=== PATIENT | female | born 1955 | race Caucasian/White ===

== ENCOUNTER 2016-09-19 06:46 | Observation (INO) | payer BC ==
[2016-09-19] MEDS ORDERED: BABY ASPIRIN 81 MG CHEW PO ONE (07:13)
[2016-09-19] MEDS ORDERED: Nitrostat 0.4 MG (ED) SL ONE ×2 (07:13→07:21)
[2016-09-19] MEDS ORDERED: Sodium Chloride 0.9% 1000 ML 1,000 ML IV SCH (07:15)
[2016-09-19] MEDS ORDERED: Sodium Chloride 0.9% 1000 ML 1,000 ML ONE (07:21)
[2016-09-19] MEDS ORDERED: BABY ASPIRIN 81 MG CHEW ONE (07:21)
[2016-09-19 07:23] LABS: BASOPHIL % 0.2 % (0.0-0.4); Eosinophil % 1.1 % (0.00-5.0); Granulocytes % 73.9 % (36.0-66.0); Lymphocytes % 17.8 % (24.0-44.0); Mean Cell Volume 84.4 fl (78-100); Mean Corpuscular Hemoglobin 27.5 pg (26-32); Mean Platelet Volume 9.7 fl (6-9.5); Platelet Count 164 K/mm3 (150-450); Red Blood Count 4.88 M/mm3 (4.1-5.4); Red Cell Distribution Width 14.2 % (11.5-14.0); White Blood Count 4.7 K/mm3 (4.0-10.5)
[2016-09-19 07:38] LABS: INR 1.07 (0.8-3.0)
[2016-09-19 07:50] LABS: ALKALINE PHOSPHATASE 87 U/L (46-116); ANION GAP 13.8 MEQ/L (5-15); BILIRUBIN,TOTAL 0.4 mg/dL (0.2-1.0); BLOOD UREA NITROGEN 16 mg/dL (9-20); CHLORIDE 105 mEq/L (98-107); Glucose 125 MG/DL (70-110); Potassium 3.9 mEq/L (3.5-5.1); SGOT/AST 17 U/L (15-37); SGPT/ALT 23 U/L (12-78); SODIUM 143 mEq/L (136-145); Total Protein 7.3 gm/dL (6.4-8.2)
[2016-09-19] MEDS ORDERED: TORAdol 30 mg Injection IM ONE (08:04)
[2016-09-19] MEDS ORDERED: TORAdol 30 mg Injection IV ONE (08:06)
--- NOTE | 2016-09-19 08:06 | ERPHSYRPT ---
- History of Present Illness Time Seen by Provider: 09/19/16 07:08 Historian: patient Exam Limitations: clinical condition Patient Subjective Stated Complaint: PT REPORTS LEFT SIDED INTERMITTANT CHEST PAIN BEGINNING CORY 0200 THIS AM-WORSENING WITH MOVMEENT-STATES WHEN SHE LEANS TO LEFT SIDE SHARP PAIN UNDER HER BREAST-DENIES SOB-DENIES DIAPHORESIS-DENIES N/ V/D Triage Nursing Assessment: PT PINK WARM ET DRY-A & O X 3-RESP EASY ET NONLABORED AT THIS TIME-RIGHT RADIAL PULSE REGULAR-PT DENIES PAIN AT THIS TIME- LUNGS CLEAR ET EQUAL Physician History: PATIENT WITH HISTORY OF MITRAL VALVE PROLAPSE, COMPLAINS OF SHARP PAINS BELOW HER LEFT BREAST SINCE 2AM, EXACERBATED UPON INSPIRATION AND MOTION OF TORSO. DENIES DYSPNEA, COUGH, RADIATION OF PAIN TO NECK, JAW OR ARMS, DIAPHORESIS OR PALPITATIONS. RATES HER PAIN A 8/10 Timing/Duration: today Activities at Onset: none Quality: stabbing Location: other (BELOW LEFT BREAST) Chest Pain Radiation: no radiation Severity of Pain-Max: moderate Severity of Pain-Current: moderate Modifying Factors: Improves With: breathing, change in position Associated Symptoms: palpitations Prior Chest Pain/Cardiac Workup: stress test (08/2014) Nitro Today/Relief: 0.4 mg x 1, provided by ED Aspirin Treatment Today: 325 mg x 1, provided at home Allergies/Adverse Reactions: No Known Drug Allergies Allergy (Verified 09/19/16 06:54) Home Medications: Aspirin [Aspirin EC] 81 mg PO DAILY 09/14/14 [History] Metoprolol Succinate 50 mg [Toprol Xl 50 MG] 50 mg PO DAILY 09/19/16 [ History] Hx Tetanus, Diphtheria Vaccination/Date Given: No Hx Influenza Vaccination/Date Given: No Hx Pneumococcal Vaccination/Date Given: No Immunizations Up to Date: Yes - Review of Systems Constitutional: No Fever, No Chills Eyes: No Symptoms Ears, Nose, & Throat: No Symptoms Respiratory: No Symptoms, No Cough, No Dyspnea Cardiac: No Chest Pain, No Edema, No Syncope Abdominal/Gastrointestinal: No Symptoms, No Abdominal Pain, No Nausea, No Vomiting, No Diarrhea Genitourinary Symptoms: Incontinence, No Dysuria Musculoskeletal: No Symptoms, No Back Pain, No Neck Pain Skin: No Rash Neurological: No Dizziness, No Focal Weakness, No Sensory Changes Psychological: No Symptoms Endocrine: No Symptoms All Other Systems: Reviewed and Negative - Past Medical History Pertinent Past Medical History: Yes Neurological History: No Pertinent History ENT History: No Pertinent History Cardiac History: No Pertinent History Respiratory History: Pneumonia Endocrine Medical History: No Pertinent History Musculoskeletal History: No Pertinent History GI Medical History: No Pertinent History History: No Pertinent History Psycho-Social History: No Pertinent History Female Reproductive Disorders: No Pertinent History Other Medical History: mitral prolapse - Past Surgical History Past Surgical History: Yes Neuro Surgical History: No Pertinent History Cardiac: No Pertinent History Respiratory: No Pertinent History Gastrointestinal: No Pertinent History Genitourinary: No Pertinent History Musculoskeletal: No Pertinent History Female Surgical History: Tubal Ligation Other Surgical History: bladder tie up - Social History Smoking Status: Never smoker Exposure to second hand smoke: No Drug Use: none Patient Lives Alone: No - Female History Hx Now: No - Nursing Vital Signs Temperature: 97.7 F Temperature Source: Oral Pulse Rate: 53 Respiratory Rate: 18 Pain Intensity: 0 - Physical Exam General Appearance: no apparent distress, alert Eye Exam: PERRL/EOMI, eyes nml inspection Ears, Nose, Throat Exam: normal ENT inspection, moist mucous membranes Neck Exam: normal inspection, non-tender, supple, full range of motion Respiratory Exam: normal breath sounds, chest tenderness (MARKED TENDERNESS LEFT 5 ICS LEFT AXILLARY LINE BELOW LEFT BREAST), lungs clear, No respiratory distress Cardiovascular Exam: regular rate/rhythm, normal heart sounds Gastrointestinal/Abdomen Exam: soft, No tenderness, No mass Back Exam: normal inspection, No CVA tenderness, No vertebral tenderness Extremity Exam: normal inspection, normal range of motion Neurologic Exam: alert, oriented x 3, cooperative, normal mood/affect, sensation nml, No motor deficits Skin Exam: normal color, warm, dry SpO2 Interpretation: normal SpO2: 98 Oxygen Delivery: Room Air - Course EKG Interpreted by Me: RATE, Sinus Kelvin, NORMAL AXIS, Non-specific ST Changes - Radiology Exams Chest X-ray Interpretation: Discussed w/ radiologist, Negative Ordered Tests: Active Orders 24 hr Category Date Time Status Up With Assistance ROUTINE Activity 09/19/16 10:32 Active Admission/Status Order ROUTINE Care 09/19/16 10:31 Active Call Admit Doctor for Orders ROUTINE Care 09/19/16 10:31 Active Cardiovascular Rn STAT Care 09/19/16 07:13 Active Code Status Order ROUTINE Care 09/19/16 10:31 Active EKG-ER Only STAT Care 09/19/16 07:13 Active IV Care Q6H Care 09/19/16 10:31 Active IV Insertion STAT Care 09/19/16 07:13 Active Implement Chest Pain Pathway ROUTINE Care 09/19/16 10:31 Active Oxygen-ED Only NASAL CANNULA 2 lpm Care 09/19/16 07:13 Active Khalif Frankiee, Apply ROUTINE Care 09/19/16 10:31 Active Telemetry ROUTINE Care 09/19/16 10:31 Active Vital Signs Q4H Care 09/19/16 10:31 Active Weight,Daily 0600 Care 09/19/16 10:31 Active Cardiac Diet Diet 09/19/16 Lunch Active CHEST 1 VIEW (PORTABLE) Stat Exams 09/19/16 07:13 Completed CBC W DIFF Stat Lab 09/19/16 07:15 Completed CMP Stat Lab 09/19/16 07:15 Completed D-DIMER QUANTITATION Stat Lab 09/19/16 07:15 Completed LIPID PROFILE AM.LAB Lab 09/20/16 04:00 Ordered PROTIME WITH INR Stat Lab 09/19/16 07:15 Completed TROPONIN Q3H Lab 09/19/16 07:15 Completed TROPONIN Q3H Lab 09/19/16 10:15 Ordered TROPONIN Q3H Lab 09/19/16 13:15 Ordered TROPONIN Q3H Lab 09/19/16 16:15 Ordered TROPONIN Q3H Lab 09/19/16 19:15 Ordered EKG Q8HX2,QAMX3,PRN RT 09/19/16 10:31 Active Pulse Oximetry Q4H RT 09/19/16 10:31 Active Transfer Order Routine Transfer 09/19/16 10:31 Ordered Medication Summary Generic Name Dose Route Start Last Admin Trade Name Freq PRN Reason Stop Dose Admin Acetaminophen 650 mg 09/19/16 10:31 Tylenol 325 Mg PO 10/19/16 10:30 Q4H PRN PRN PAIN AND/OR FEVER Al Hydrox/Mg Hydrox/Simethicone 30 ml 09/19/16 10:31 Maalox Es 30 Ml Unit Dose PO 10/19/16 10:30 Q4H PRN PRN INDIGESTION Aspirin 325 mg 09/20/16 10:00 Ecotrin 325 Mg PO 10/20/16 09:59 DAILY ELLIS Sodium Chloride 1,000 mls @ 50 mls/hr 09/19/16 07:15 09/19/16 07:23 Sodium Chloride 0.9% 1000 Ml IV 10/19/16 07:14 50 mls/hr .Q20H ELLIS Administration Sodium Chloride 500 mls @ 20 mls/hr 09/19/16 10:45 Sodium Chloride 0.9% 500 Ml IV 10/19/16 10:44 .Q24H ELLIS Ketorolac Tromethamine 30 mg 09/19/16 10:34 Toradol 30 Mg Injection IV 09/24/16 10:33 Q6H PRN PRN PAIN Magnesium Hydroxide 30 - 60 ml 09/19/16 10:31 Milk Of Magnesia 30 Ml PO 10/19/16 10:30 QDP PRN CONSTIPATION Metoprolol Succinate 50 mg 09/20/16 10:00 Toprol-Xl 25mg Tablets PO 10/20/16 09:59 DAILY ELLIS Morphine Sulfate 2 mg 09/19/16 10:31 Morphine Sulfate 2 Mg Inj IV 09/24/16 10:30 .Q15MIN PRN PRN CHEST PAIN Nitroglycerin 0.4 mg 09/19/16 10:31 Nitrostat 0.4 Mg Tablet SL 10/19/16 10:30 .Q5MIN PRN CHEST PAIN Nitroglycerin 1 gm 09/19/16 14:00 Nitro-Bid 2% Ud Packets TOP 10/19/16 13:59 Q8HT [facility] Ondansetron HCl 4 mg 09/19/16 10:31 Zofran 4 Mg/2 Ml Vial IV 10/19/16 10:30 Q4H PRN PRN NAUSEA/VOMITING Senna/Docusate Sodium 2 udtab 09/19/16 10:31 Senokot-S Tablet PO 10/19/16 10:30 BID PRN PRN CONSTIPATION Discontinued Medications Generic Name Dose Route Start Last Admin Trade Name Freq PRN Reason Stop Dose Admin Aspirin 241 mg 09/19/16 07:13 09/19/16 07:23 Baby Aspirin 81 Mg Chew PO 09/19/16 07:14 Not Given STAT ONE Aspirin Confirm 09/19/16 07:21 Baby Aspirin 81 Mg Chew Administered 09/19/16 07:22 Dose 243 mg .ROUTE .STK-MED ONE Sodium Chloride Confirm 09/19/16 07:21 Sodium Chloride 0.9% 1000 Ml Administered 09/19/16 07:22 Dose 1,000 mls @ ud .ROUTE .STK-MED ONE Ketorolac Tromethamine 30 mg 09/19/16 08:04 09/19/16 08:09 Toradol 30 Mg Injection IM 09/19/16 08:05 Not Given STAT ONE Ketorolac Tromethamine 30 mg 09/19/16 08:06 09/19/16 08:10 Toradol 30 Mg Injection IV 09/19/16 08:07 30 mg STAT ONE Administration Ketorolac Tromethamine Confirm 09/19/16 08:07 Toradol 30 Mg Injection Administered 09/19/16 08:08 Dose 30 mg .ROUTE .STK-MED ONE Nitroglycerin 0.4 mg 09/19/16 07:13 09/19/16 07:24 Nitrostat 0.4 Mg (Ed) SL 09/19/16 07:14 0.4 mg STAT ONE Administration Nitroglycerin Confirm 09/19/16 07:21 Nitrostat 0.4 Mg (Ed) Administered 09/19/16 07:22 Dose 0.4 mg SL .STK-MED ONE Nitroglycerin 1 gm 09/19/16 09:49 09/19/16 10:28 Nitro-Bid 2% Ud Packets TOP 09/19/16 09:50 1 gm STAT ONE Administration Nitroglycerin Confirm 09/19/16 10:23 Nitro-Bid 2% Ud Packets Administered 09/19/16 10:24 Dose 1 gm .ROUTE .STK-MED ONE Lab/Rad Data: Laboratory Result Diagrams 09/19/16 07:15 09/19/16 07:15 Laboratory Results 09/19/16 09/19/16 09/19/16 Range/Units 07:15 07:15 07:15 WBC (4.0-10.5) K/mm3 RBC (4.1-5.4) M/mm3 Hgb (12.0-16.0) gm/dl Hct (35-47) % MCV (78-100) fl MCH (26-32) pg MCHC (32-36) g/dl RDW (11.5-14.0) % Plt Count (150-450) K/mm3 MPV (6-9.5) fl Gran % (36.0-66.0) % Lymphocytes % (24.0-44.0) % Monocytes % (0.0-12.0) % Eosinophils % (0.00-5.0) % Basophils % (0.0-0.4) % Basophils # (0-0.4) INR 1.07 (0.8-3.0) D-Dimer 0.346 (0.00-0.49) mg/L Sodium 143 (136-145) mEq/L Potassium 3.9 (3.5-5.1) mEq/L Chloride 105 (98-107) mEq/L Carbon Dioxide 28.0 (21-32) mEq/L Anion Gap 13.8 (5-15) MEQ/L BUN 16 (9-20) mg/dL Creatinine 0.85 (0.55-1.30) mg/dl Estimated GFR > 60 ML/MIN Glucose 125 H (70-110) MG/DL Calcium 9.5 (8.5-10.1) mg/dL Total Bilirubin 0.4 (0.2-1.0) mg/dL AST 17 (15-37) U/L ALT 23 (12-78) U/L Alkaline Phosphatase 87 (46-116) U/L Troponin I < 0.017 (0.000-0.056) ng/ml Serum Total Protein 7.3 (6.4-8.2) gm/dL Albumin 4.0 (3.4-5.0) g/dL 09/19/16 Range/Units 07:15 WBC 4.7 (4.0-10.5) K/mm3 RBC 4.88 (4.1-5.4) M/mm3 Hgb 13.4 (12.0-16.0) gm/dl Hct 41.2 (35-47) % MCV 84.4 (78-100) fl MCH 27.5 (26-32) pg MCHC 32.5 (32-36) g/dl RDW 14.2 H (11.5-14.0) % Plt Count 164 (150-450) K/mm3 MPV 9.7 H (6-9.5) fl Gran % 73.9 H (36.0-66.0) % Lymphocytes % 17.8 L (24.0-44.0) % Monocytes % 7.0 (0.0-12.0) % Eosinophils % 1.1 (0.00-5.0) % Basophils % 0.2 (0.0-0.4) % Basophils # 0.01 (0-0.4) INR (0.8-3.0) D-Dimer (0.00-0.49) mg/L Sodium (136-145) mEq/L Potassium (3.5-5.1) mEq/L Chloride (98-107) mEq/L Carbon Dioxide (21-32) mEq/L Anion Gap (5-15) MEQ/L BUN (9-20) mg/dL Creatinine (0.55-1.30) mg/dl Estimated GFR ML/MIN Glucose (70-110) MG/DL Calcium (8.5-10.1) mg/dL Total Bilirubin (0.2-1.0) mg/dL AST (15-37) U/L ALT (12-78) U/L Alkaline Phosphatase (46-116) U/L Troponin I (0.000-0.056) ng/ml Serum Total Protein (6.4-8.2) gm/dL Albumin (3.4-5.0) g/dL - Progress Progress: improved Progress Note: 09/19/16 08:12 PATIENT ADMINISTERED NITROGLYCERIN 0.4MG SL, TORADOL 30MG IV 09/19/16 09:08 PATIENT HAD COMPLETE RELIEF AFTER 1 NTG 0.4MG SL 09/19/16 09:50 Discussed with : Tan (DISCUSSED WITH DR SUAREZ AT 1020 FOR OBSERVATION) Counseled pt/family regarding: lab results, diagnosis, need for follow-up, rad results - Departure Time of Disposition: 10:40 Departure Disposition: Observation Clinical Impression: ACUTE CHEST PAIN Condition: Stable Critical Care Time: No Referrals: RIGOBERTO SUAREZ [Primary Care Provider] - Additional Instructions: TAKE NITROGLYCERIN 0.4MG EVERY 5 MINUTES FOR CHEST PAIN NEEDED UP TO TOTAL DOSE OF 3 TABLETS. RETURN TO THE EMERGENCY ROOM FOR CHEST PAIN. CONSULT YOUR FAMILY PHYSICIAN FOR EVALUATION. FOLLOWUP WITH DR FONSECA FOR SCHEDULED APPOINTMENT ON FEB 14TH, 2017 AT 4PM. Prescriptions: Nitroglycerin 0.4 mg Tablet [Nitrostat 0.4 MG Tablet] 0.4 mg SL Q5MIN PRN MR X 3 PRN #0 bottle PRN Reason: Pain
[2016-09-19] MEDS ORDERED: TORAdol 30 mg Injection ONE (08:07)
--- NOTE | 2016-09-19 09:06 | XRAY ---
Indication: Dyspnea. Comparison: September 14, 2014 Portable chest underinflated today accentuating the cardiopulmonary structures. No focal infiltrate, consolidation, or large effusion. Vascularity normal. Bony thorax intact. Impression: Nonacute underinflated chest.
[2016-09-19] MEDS ORDERED: NITRO-BID 2% UD PACKETS TOP ONE (09:49)
[2016-09-19] MEDS ORDERED: NITRO-BID 2% UD PACKETS ONE (10:23)
[2016-09-19] MEDS ORDERED: MORPHINE SULFATE 2 MG INJ IV PRN (10:31)
[2016-09-19] MEDS ORDERED: MILK OF MAGNESIA 30 ML PO PRN (10:31)
[2016-09-19] MEDS ORDERED: Nitrostat 0.4 MG Tablet SL PRN (10:31)
[2016-09-19] MEDS ORDERED: Zofran 4 MG/2 ML VIAL IV PRN (10:31)
[2016-09-19] MEDS ORDERED: Senokot-S Tablet PO PRN (10:31)
[2016-09-19] MEDS ORDERED: TYLENOL 325 MG PO PRN (10:31)
[2016-09-19] MEDS ORDERED: MAALOX ES 30 ML UNIT DOSE PO PRN (10:31)
[2016-09-19] MEDS ORDERED: TORAdol 30 mg Injection IV PRN (10:34)
[2016-09-19] MEDS ORDERED: Sodium Chloride 0.9% 500 ML 500 ML IV SCH (10:45)
[2016-09-19] MEDS ORDERED: NITRO-BID 2% UD PACKETS TOP SCH (14:00)
--- NOTE | 2016-09-19 15:47 | SSS ---
DISCHARGE DIAGNOSIS: CHEST PAIN. CHIEF COMPLAINT: Chest pain left sided worse with moving. HISTORY OF PRESENT ILLNESS: The patient is a 61 year-old white female who presented to the emergency room. She reports that she woke up in the middle of the night to go to the bathroom and noticed she was having some chest discomfort on the left side which was sharp in nature and worse with movement particularly twisting to the left. The patient denied any heaviness of the chest, shortness of breath. No nausea, vomiting or diaphoresis. The patient reports that she previously had a stress test done two years ago which was somewhat concerning but they never followed it up beyond that and she has never had any problems other than she does have a history of mitral valve prolapse. PAST MEDICAL/SURGICAL HISTORY: Otherwise fairly unremarkable. MEDICATIONS: Aspirin 81 mg a day, metoprolol 50 mg extended release daily. ALLERGIES: NKDA. FAMILY HISTORY: Noncontributory. SOCIAL HISTORY: The patient is a nonsmoker, nondrinker. PHYSICAL EXAMINATION: Her vital signs on admission showed temperature 97.7F oral, pulse 53, respiratory rate 18, blood pressure not recorded on the chart record. HEENT: Normocephalic, atraumatic. Pupils equal round reactive to light. Extraocular movements intact. Oropharynx is pink and moist. NECK: Supple without lymphadenopathy, thyromegaly or JVD. CHEST: Clear to auscultation. It is nontender to palpation other than minimally in the left upper quadrant. ABDOMEN: Soft, nontender, nondistended without hepatosplenomegaly or masses. EXTREMITIES: Without clubbing, cyanosis or edema. NEUROLOGIC: The patient is alert and oriented x3. No focal deficits noted. LAB DATA AND TESTS: The laboratory studies revealed troponin done three separate times at less than 0.017 after the patient had been admitted for observation. The patient's initial metabolic panel showed glucose nonfasting at 125, BUN 16, creatinine 0.85. Electrolytes are normal. Liver enzymes were normal. She had D-dimer of 0.346 which was within normal range. Her CBC was normal with a white blood cell count of 4,700, hemoglobin 13.4, PLT count 164,000. Chest x-ray was nonacute underinflated chest. EKG showed normal sinus rhythm with nonspecific ST-T wave changes noted. The patient did previously have nuclear medicine heart scan performed on 09/25/2014 which showed 10% reversible ischemia lateral wall. Left ventricular ejection fraction 64% at that time. HOSPITAL COURSE: During the patient's stay she has been essentially pain free other than when she moves over to her left side which causes her sharp discomfort. Her troponins have remained negative. She was felt to be ready for discharge home with instructions to follow up with her administrative officer. She was given a prescription for sublingual nitroglycerin to take for chest pain heaviness. She is instructed to take aspirin for the chest wall pain otherwise and instructed to follow up with her administrative officer or return to the hospital if she had further problems in the interim.
[2016-09-19 15:52] VITALS: BP 106/59; PULSE 47; O2SAT 94
[2016-09-20] MEDS ORDERED: Ecotrin 325 MG PO SCH (10:00)
[2016-09-20] MEDS ORDERED: Toprol-Xl 25MG Tablets PO SCH (10:00)
== END 2016-09-19 16:40 | disposition home or self-care (01) ==
LOC: ED 06:46 → MED SURG 10:55
PROVIDERS: ADMIT Family Medicine; ATTEND Family Medicine
DX: R07.89 Other chest pain (principal); I34.1 Nonrheumatic mitral (valve) prolapse
CPT/HCPCS: 36000; 36415; 71010; 80053; 84484; 85025; 85379; 85610; 93005; 93041; 93268; 96360; 96361; 96374; 99284; G0378; J1885

== ENCOUNTER 2021-03-09 14:58 | Observation (INO) | payer MEDICARE ==
[2021-03-09] MEDS ORDERED: BABY ASPIRIN 81 MG CHEW PO ONE (15:27)
[2021-03-09] MEDS ORDERED: MORPHINE SULFATE 4 MG INJ IV ONE (15:27)
[2021-03-09] MEDS ORDERED: Zofran 4 MG/2 ML VIAL IV ONE (15:27)
[2021-03-09 15:34] LABS: Absolute Neutrophil Ct (ANC) 3.78 (1.4-6.9); BASOPHIL % 0.2 % (0.0-0.4); Basophil (Absolute #) 0.01 (0-0.4); Eosinophil (Absolute #) 0.05 (0-0.5); Hematocrit 41.3 % (35-47); Hemoglobin 13.3 gm/dl (12.0-16.0); Lymphocyte (Absolute #) 0.75 (1.0-4.6); Mean Cell Volume 84.8 fl (78-100); Mean Corpuscular Hemoglobin 27.3 pg (26-32); Mean Corpuscular Hgb Concent. 32.2 g/dl (32-36); Mean Platelet Volume 9.7 fl (7.5-11.0); Monocyte (Absolute #) 0.41 (0.0-1.3); Monocytes % 8.2 % (0.0-12.0); Neutrophil % 75.6 % (36.0-66.0); Platelet Count 200 K/mm3 (150-450); Red Blood Count 4.87 M/mm3 (4.1-5.4); Red Cell Distribution Width 14.5 % (11.5-14.0)
--- NOTE | 2021-03-09 15:49 | ERPHSYRPT ---
- History of Present Illness Time Seen by Provider: 03/09/21 15:02 Historian: patient Exam Limitations: no limitations Patient Subjective Stated Complaint: chest pain Triage Nursing Assessment: pt to ED c/o CP onset Sunday at rest. pt states pain originates in L upper chest and radiates to L arm and back. hx sciatic nerve pain and pt states she thought this felt similar but pain has not yet gone away. rates 6/10 at worst, but around 3/10 now. heart sounds clear. lungs clear and equal bilaterally. daily asa taken Physician History: 65 years old female with history of hypertension presented in the ER with chief complaint of left-sided chest pain off and on moderate intensity, dull aching, radiating to left arm/back without any significant aggravating or relieving factors. Patient is having constant pain since morning. No palpitations or shortness of breath. Denies any fever chills or cough. Denies any history of stenting/CAD in the past. Timing/Duration: day(s) (4), intermittent, gradual onset, worse Activities at Onset: rest Quality: dullness, sharpness Chest Pain Radiation: arm, back Severity of Pain-Max: moderate Severity of Pain-Current: moderate Modifying Factors: Improves With: nothing Associated Symptoms: denies symptoms Prior Chest Pain/Cardiac Workup: no prior chest pain, no prior cardiac workup Nitro Today/Relief: no nitro taken today Aspirin Treatment Today: no aspirin today Allergies/Adverse Reactions: No Known Drug Allergies Allergy (Verified 03/09/21 15:10) Home Medications: Aspirin [Aspirin EC] 81 mg PO DAILY 09/14/14 [History] Metoprolol Succinate 50 mg [Toprol Xl 50 MG] 50 mg PO DAILY 09/19/16 [History] Hx Tetanus, Diphtheria Vaccination/Date Given: No Hx Influenza Vaccination/Date Given: No Hx Pneumococcal Vaccination/Date Given: No Immunizations Up to Date: No Travel Risk - International Travel Have you traveled outside of the country in past 3 weeks: No - Coronavirus Screening Are you exhibiting any of the following symptoms?: No Close contact with a COVID-19 positive Pt in past 14-21 Days: No - Vaccine Status Have you recieved a Covid-19 vaccination: No Skates Operator: Moderna - Vaccination Dates Date of 2cond Vaccination (if applicable): december - Review of Systems Constitutional: No Symptoms Eyes: No Symptoms Ears, Nose, & Throat: No Symptoms Respiratory: No Symptoms Cardiac: Chest Pain Abdominal/Gastrointestinal: No Symptoms Genitourinary Symptoms: No Symptoms Musculoskeletal: No Symptoms Skin: No Symptoms Neurological: No Symptoms Psychological: No Symptoms Endocrine: No Symptoms Immunological/Allergic: No Symptoms - Past Medical History Pertinent Past Medical History: Yes Neurological History: No Pertinent History ENT History: No Pertinent History Cardiac History: No Pertinent History Respiratory History: Pneumonia Endocrine Medical History: No Pertinent History Musculoskeletal History: No Pertinent History GI Medical History: No Pertinent History History: No Pertinent History Psycho-Social History: No Pertinent History Female Reproductive Disorders: No Pertinent History Other Medical History: mitral prolapse - Past Surgical History Past Surgical History: Yes Neuro Surgical History: No Pertinent History Cardiac: No Pertinent History Respiratory: No Pertinent History Gastrointestinal: No Pertinent History Genitourinary: No Pertinent History Musculoskeletal: No Pertinent History Female Surgical History: Tubal Ligation Other Surgical History: bladder tie up - Social History Smoking Status: Never smoker Exposure to second hand smoke: Yes Drug Use: none Patient Lives Alone: No - Nursing Vital Signs Nursing Vital Signs: Initial Vital Signs Temperature 97.8 F 03/09/21 15:16 Pulse Rate 60 03/09/21 15:16 Respiratory Rate 18 03/09/21 15:16 Blood Pressure 140/73 03/09/21 15:16 O2 Sat by Pulse Oximetry 98 03/09/21 15:16 Pain Scale Pain Intensity 3 - Physical Exam General Appearance: no apparent distress, alert Eye Exam: PERRL/EOMI Ears, Nose, Throat Exam: normal ENT inspection Neck Exam: normal inspection, non-tender, full range of motion Respiratory Exam: normal breath sounds, lungs clear Cardiovascular Exam: regular rate/rhythm, normal heart sounds Gastrointestinal/Abdomen Exam: soft, normal bowel sounds Back Exam: normal inspection, normal range of motion Extremity Exam: normal inspection, normal range of motion Neurologic Exam: alert, oriented x 3, cooperative Skin Exam: normal color SpO2 Interpretation: normal SpO2: 98 O2 Delivery: Room Air - Course EKG Interpreted by Me: RATE (58), Sinus Kelvin, NORMAL AXIS, NORMAL INTERVALS (T wave inversions inferior leads. Mild ST depression in anterior leads.), Non- specific ST Changes Ordered Tests: Active Orders 24 hr Category Date Time Status Field Superintendent STAT Care 03/09/21 15:28 Active EKG-ER Only STAT Care 03/09/21 15:27 Active IV Insertion STAT Care 03/09/21 15:27 Active CHEST 1 VIEW (PORTABLE) Stat Exams 03/09/21 15:28 Completed CBC W DIFF Stat Lab 03/09/21 15:10 Completed CMP Stat Lab 03/09/21 15:10 Completed D-DIMER QUANTITATIVE Stat Lab 03/09/21 17:31 Ordered NT PRO BNP Stat Lab 03/09/21 15:10 Completed TROPONIN Q3H Lab 03/09/21 15:10 Completed TROPONIN Q3H Lab 03/09/21 18:30 Ordered TROPONIN Q3H Lab 03/09/21 21:30 Ordered TROPONIN Q3H Lab 03/10/21 00:30 Ordered TROPONIN Q3H Lab 03/10/21 03:30 Ordered Medication Summary Discontinued Medications Generic Name Dose Route Start Last Admin Trade Name Freq PRN Reason Stop Dose Admin Aspirin 324 mg 03/09/21 15:27 03/09/21 16:27 Baby Aspirin 81 Mg Chew PO 03/09/21 15:28 324 mg STAT ONE Administration Aspirin Confirm 03/09/21 16:24 Baby Aspirin 81 Mg Chew Administered 03/09/21 16:25 Dose 243 mg .ROUTE .STK-MED ONE Morphine Sulfate 4 mg 03/09/21 15:27 03/09/21 16:31 Morphine Sulfate 4 Mg Inj IV 03/09/21 15:28 4 mg STAT ONE Administration Morphine Sulfate Confirm 03/09/21 16:24 Morphine Sulfate 4 Mg Inj Administered 03/09/21 16:25 Dose 4 mg .ROUTE .STK-MED ONE Ondansetron HCl 4 mg 03/09/21 15:27 03/09/21 16:29 Zofran 4 Mg/2 Ml Vial IV 03/09/21 15:28 4 mg STAT ONE Administration Ondansetron HCl Confirm 03/09/21 16:24 Zofran 4 Mg/2 Ml Vial Administered 03/09/21 16:25 Dose 4 mg .ROUTE .STK-MED ONE Lab/Rad Data: Laboratory Result Diagrams 03/09/21 15:10 03/09/21 15:10 Laboratory Results 03/09/21 03/09/21 03/09/21 Range/Units 15:10 15:10 15:10 WBC 5.0 (4.0-10.5) K/mm3 RBC 4.87 (4.1-5.4) M/mm3 Hgb 13.3 (12.0-16.0) gm/dl Hct 41.3 (35-47) % MCV 84.8 (78-100) fl MCH 27.3 (26-32) pg MCHC 32.2 (32-36) g/dl RDW 14.5 H (11.5-14.0) % Plt Count 200 (150-450) K/mm3 MPV 9.7 (7.5-11.0) fl Gran % 75.6 H (36.0-66.0) % Eos # (Auto) 0.05 (0-0.5) Absolute Lymphs (auto) 0.75 L (1.0-4.6) Absolute Monos (auto) 0.41 (0.0-1.3) Lymphocytes % 15.0 L (24.0-44.0) % Monocytes % 8.2 (0.0-12.0) % Eosinophils % 1.0 (0.00-5.0) % Basophils % 0.2 (0.0-0.4) % Absolute Granulocytes 3.78 (1.4-6.9) Basophils # 0.01 (0-0.4) Sodium 141 (137-145) mmol/L Potassium 4.2 (3.5-5.1) mmol/L Chloride 105 (98-107) mmol/L Carbon Dioxide 29 (22-30) mmol/L Anion Gap 11.4 (5-15) MEQ/L BUN 16 (7-17) mg/dL Creatinine 0.77 (0.52-1.04) mg/dL Estimated GFR > 60.0 ML/MIN Glucose 127 H (74-106) mg/dL Calcium 9.7 (8.4-10.2) mg/dL Total Bilirubin 0.50 (0.2-1.3) mg/dL AST 22 (14-36) U/L ALT 17 (0-35) U/L Alkaline Phosphatase 82 (38-126) U/L Troponin I < 0.012 (0.000-0.034) ng/mL NT-Pro-B Natriuret Pep 162 (0-900) pg/mL Serum Total Protein 6.6 (6.3-8.2) g/dL Albumin 4.1 (3.5-5.0) g/dL - Progress Progress: improved Air Movement: good Progress Note: 03/09/21 17:34 She is given aspirin and morphine, on reevaluation chest pain is much improved but not completely resolved. EKG showed some T wave inversion in inferior leads and nonspecific T wave changes in the lateral leads and some mild ST depression in anterior leads. Initial troponins are negative. Chest x-ray negative for any acute cardiopulmonary findings. Discussed with Dr. Rowan and patient is being admitted for observation to rule out [place]. Blood Culture(s) Obtained: No Antibiotics given: No Discussed with : Aureliano Will see patient in: hospital (observation) Counseled pt/family regarding: lab results, diagnosis, need for follow-up, rad results - Departure Departure Disposition: Observation Clinical Impression: Chest pain, rule out acute myocardial infarction Condition: Stable Critical Care Time: No Referrals: RIGOBERTO SUAREZ [ACTIVE STAFF] -
--- NOTE | 2021-03-09 15:54 | XRAY ---
Exam: AP upright portable chest film from 03/09/2021. Comparison: AP portable chest film from 09/19/2016. Indication: Chest pain. Findings: The heart size appears within normal limits. Atherosclerotic vascular calcification is seen within the aortic knob, and there is slight tortuosity of the proximal descending thoracic aorta. The remainder of the leonor and mediastinal structures appears unremarkable. There is average inflation of the lungs. There is slight elevation of the right hemidiaphragm with respect to the left hemidiaphragm representing no change. No air space infiltrates, vascular congestion, pneumothorax, or pleural fluid is seen. No acute osseous process is seen. There is minimal convexity of the mid thoracic spine toward the right. Impression: 1. No acute cardiopulmonary process seen.
[2021-03-09] MEDS ORDERED: MORPHINE SULFATE 4 MG INJ ONE (16:24)
[2021-03-09] MEDS ORDERED: Zofran 4 MG/2 ML VIAL ONE (16:24)
[2021-03-09] MEDS ORDERED: BABY ASPIRIN 81 MG CHEW ONE (16:24)
[2021-03-09 16:55] LABS: ALBUMIN 4.1 g/dL (3.5-5.0); ALKALINE PHOSPHATASE 82 U/L (38-126); ANION GAP 11.4 MEQ/L (5-15); BLOOD UREA NITROGEN 16 mg/dL (7-17); CHLORIDE 105 mmol/L (98-107); Calcium 9.7 mg/dL (8.4-10.2); Carbon Dioxide 29 mmol/L (22-30); Creatinine 1 0.77 mg/dL (0.52-1.04); EST GLOMERULAR FILTRATION RATE > 60.0 ML/MIN; Glucose 127 mg/dL (74-106); NT PRO BNP 162 pg/mL (0-900); Potassium 4.2 mmol/L (3.5-5.1); SGOT/AST 22 U/L (14-36); SGPT/ALT 17 U/L (0-35); SODIUM 141 mmol/L (137-145); Total Protein 6.6 g/dL (6.3-8.2)
[2021-03-09] MEDS ORDERED: MORPHINE SULFATE 2 MG INJ IV PRN (20:44)
[2021-03-09] MEDS ORDERED: TYLENOL 325 MG PO PRN (20:44)
[2021-03-09] MEDS ORDERED: DUONEB 0.5-3 MG/3 ml Neb IH PRN (20:44)
[2021-03-09] MEDS ORDERED: Zofran 4 MG/2 ML VIAL IV PRN (20:44)
[2021-03-10 03:33] LABS: Absolute Neutrophil Ct (ANC) 2.77 (1.4-6.9); BASOPHIL % 0.3 % (0.0-0.4); Basophil (Absolute #) 0.01 (0-0.4); Eosinophil % 1.6 % (0.00-5.0); Eosinophil (Absolute #) 0.06 (0-0.5); Hematocrit 38.7 % (35-47); Hemoglobin 12.4 gm/dl (12.0-16.0); Lymphocyte (Absolute #) 0.69 (1.0-4.6); Lymphocytes % 17.9 % (24.0-44.0); Mean Cell Volume 84.9 fl (78-100); Mean Corpuscular Hemoglobin 27.2 pg (26-32); Mean Platelet Volume 9.3 fl (7.5-11.0); Monocyte (Absolute #) 0.33 (0.0-1.3); Monocytes % 8.5 % (0.0-12.0); Neutrophil % 71.7 % (36.0-66.0); Platelet Count 149 K/mm3 (150-450); Red Blood Count 4.56 M/mm3 (4.1-5.4); Red Cell Distribution Width 14.5 % (11.5-14.0); White Blood Count 3.9 K/mm3 (4.0-10.5)
[2021-03-10 04:02] LABS: ALBUMIN 3.7 g/dL (3.5-5.0); ALKALINE PHOSPHATASE 65 U/L (38-126); ANION GAP 10.4 MEQ/L (5-15); BLOOD UREA NITROGEN 14 mg/dL (7-17); CHLORIDE 105 mmol/L (98-107); Calcium 9.1 mg/dL (8.4-10.2); Carbon Dioxide 29 mmol/L (22-30); Creatinine 1 0.72 mg/dL (0.52-1.04); EST GLOMERULAR FILTRATION RATE > 60.0 ML/MIN; Glucose 116 mg/dL (74-106); SGOT/AST 22 U/L (14-36); SGPT/ALT 16 U/L (0-35); SODIUM 140 mmol/L (137-145)
--- NOTE | 2021-03-10 07:30 | PCM.SSS ---
History of Present Illness - Chief Complaint Chief Complaint: Chest pain rule out acute [place] History of Present Illness: is a 65 year old female patient of Dr Jeffries, she came to ER yesterday with a 4-5 day history of chest pain, she is not able to describe the pain well but states it is not sharp, pain is intermittent and fleeting and radiates to her back. no nausea, vomiting, dyspnea or diaphoresis associated with the pain. she has seen Dr Fonseca in the past and had stress testing but no interventions. she has nitro at home but hasn't tried it for any of the episodes of pain for unknown reason. she has no pain this morning. - Review of Systems Constitutional: No Fever, No Chills Respiratory: No Cough, No Short Of Breath Cardiac: Chest Pain Abdominal/Gastrointestinal: No Abdominal Pain, No Nausea, No Vomiting, No Diarrhea Genitourinary Symptoms: No Dysuria Skin: No Rash Neurological: No Dizziness, No Focal Weakness, No Sensory Changes All Other Systems: Reviewed and Negative Medications & Allergies Home Medications: Home Medication List Aspirin [Aspirin EC] 81 mg PO DAILY 09/14/14 [History Confirmed 03/09/21] Metoprolol Succinate 50 mg [Toprol Xl 50 MG] 50 mg PO DAILY 09/19/16 [History Confirmed 03/09/21] Nitroglycerin 0.4 mg Tablet [Nitrostat 0.4 MG Tablet] 0.4 mg SL Q5MIN PRN MR X 3 PRN #25 bottle 09/19/16 [Rx Confirmed 03/09/21] Pravastatin Sodium 20 mg PO DAILY 03/09/21 [History Confirmed 03/09/21] Allergies/Adverse Reactions: Allergies Allergy/AdvReac Type Severity Reaction Status Date / Time No Known Drug Allergies Allergy Verified 03/09/21 15:10 - Past Medical History Past Medical History: Yes Neurological History: No Pertinent History ENT History: No Pertinent History Cardiac History: No Pertinent History, High Cholesterol Respiratory History: Pneumonia Endocrine Medical History: No Pertinent History Musculoskelatal History: No Pertinent History GI Medical History: No Pertinent History History: No Pertinent History Pyscho-Social History: No Pertinent History Reproductive Disorders: No Pertinent History Comment: mitral prolapse - Female History Are you now?: No - Past Surgical History Past Surgical History: Yes Neuro Surgical History: No Pertinent History Cardiac History: No Pertinent History Respiratory Surgery: No Pertinent History GI Surgical History: No Pertinent History Genitourinary Surgical Hx: No Pertinent History Musculskeletal Surgical Hx: No Pertinent History Female Surgical History: Tubal Ligation Other Surgical History: bladder tie up - Social History Smoking Status: Never smoker Exposure to second hand smoke: No Alcohol: None Drug Use: none - Physical Exam Vital Signs: Vital Signs - 24 hr Temp Pulse Pulse Resp BP Pulse Ox 03/10/21 04:00 97.7 F 45 L 20 139/66 96 03/10/21 00:00 97.9 F 50 L 16 140/62 98 03/09/21 21:22 97.4 F 56 L 18 160/63 97 03/09/21 20:00 58 L 18 160/63 97 03/09/21 19:00 46 L 18 166/70 98 03/09/21 18:00 40 L 18 150/69 94 L 03/09/21 17:44 98.2 F 44 L 18 155/73 98 03/09/21 17:35 98 03/09/21 16:35 92 H 24 98 03/09/21 15:16 97.8 F 54 L 60 18 140/73 98 General Appearance: no apparent distress, alert Respiratory Exam: normal breath sounds, lungs clear, No respiratory distress Cardiovascular Exam: regular rate/rhythm, normal heart sounds, normal peripheral pulses Gastrointestinal/Abdomen Exam: soft, normal bowel sounds, No tenderness, No mass Extremity Exam: normal inspection, normal range of motion, pelvis stable Skin Exam: normal color, warm, dry, No rash Results - Labs Lab/Micro Results: Lab Results-Last 24 Hours 03/09/21 03/09/21 03/09/21 Range/Units 15:10 15:10 15:10 WBC 5.0 (4.0-10.5) K/mm3 RBC 4.87 (4.1-5.4) M/mm3 Hgb 13.3 (12.0-16.0) gm/dl Hct 41.3 (35-47) % MCV 84.8 (78-100) fl MCH 27.3 (26-32) pg MCHC 32.2 (32-36) g/dl RDW 14.5 H (11.5-14.0) % Plt Count 200 (150-450) K/mm3 MPV 9.7 (7.5-11.0) fl Gran % 75.6 H (36.0-66.0) % Eos # (Auto) 0.05 (0-0.5) Absolute Lymphs (auto) 0.75 L (1.0-4.6) Absolute Monos (auto) 0.41 (0.0-1.3) Lymphocytes % 15.0 L (24.0-44.0) % Monocytes % 8.2 (0.0-12.0) % Eosinophils % 1.0 (0.00-5.0) % Basophils % 0.2 (0.0-0.4) % Absolute Granulocytes 3.78 (1.4-6.9) Basophils # 0.01 (0-0.4) D-Dimer (215-500) ng/mL Sodium 141 (137-145) mmol/L Potassium 4.2 (3.5-5.1) mmol/L Chloride 105 (98-107) mmol/L Carbon Dioxide 29 (22-30) mmol/L Anion Gap 11.4 (5-15) MEQ/L BUN 16 (7-17) mg/dL Creatinine 0.77 (0.52-1.04) mg/dL Estimated GFR > 60.0 ML/MIN Glucose 127 H (74-106) mg/dL Calcium 9.7 (8.4-10.2) mg/dL Total Bilirubin 0.50 (0.2-1.3) mg/dL AST 22 (14-36) U/L ALT 17 (0-35) U/L Alkaline Phosphatase 82 (38-126) U/L Troponin I < 0.012 (0.000-0.034) ng/mL NT-Pro-B Natriuret Pep 162 (0-900) pg/mL Serum Total Protein 6.6 (6.3-8.2) g/dL Albumin 4.1 (3.5-5.0) g/dL SARS-CoV-2 (PCR) (NEGATIVE) 03/09/21 03/09/21 03/09/21 Range/Units 17:49 17:57 18:00 WBC (4.0-10.5) K/mm3 RBC (4.1-5.4) M/mm3 Hgb (12.0-16.0) gm/dl Hct (35-47) % MCV (78-100) fl MCH (26-32) pg MCHC (32-36) g/dl RDW (11.5-14.0) % Plt Count (150-450) K/mm3 MPV (7.5-11.0) fl Gran % (36.0-66.0) % Eos # (Auto) (0-0.5) Absolute Lymphs (auto) (1.0-4.6) Absolute Monos (auto) (0.0-1.3) Lymphocytes % (24.0-44.0) % Monocytes % (0.0-12.0) % Eosinophils % (0.00-5.0) % Basophils % (0.0-0.4) % Absolute Granulocytes (1.4-6.9) Basophils # (0-0.4) D-Dimer 1632 H* (215-500) ng/mL Sodium (137-145) mmol/L Potassium (3.5-5.1) mmol/L Chloride (98-107) mmol/L Carbon Dioxide (22-30) mmol/L Anion Gap (5-15) MEQ/L BUN (7-17) mg/dL Creatinine (0.52-1.04) mg/dL Estimated GFR ML/MIN Glucose (74-106) mg/dL Calcium (8.4-10.2) mg/dL Total Bilirubin (0.2-1.3) mg/dL AST (14-36) U/L ALT (0-35) U/L Alkaline Phosphatase (38-126) U/L Troponin I < 0.012 (0.000-0.034) ng/mL NT-Pro-B Natriuret Pep (0-900) pg/mL Serum Total Protein (6.3-8.2) g/dL Albumin (3.5-5.0) g/dL SARS-CoV-2 (PCR) NEGATIVE (NEGATIVE) 03/09/21 03/10/21 03/10/21 Range/Units 21:06 00:21 03:35 WBC (4.0-10.5) K/mm3 RBC (4.1-5.4) M/mm3 Hgb (12.0-16.0) gm/dl Hct (35-47) % MCV (78-100) fl MCH (26-32) pg MCHC (32-36) g/dl RDW (11.5-14.0) % Plt Count (150-450) K/mm3 MPV (7.5-11.0) fl Gran % (36.0-66.0) % Eos # (Auto) (0-0.5) Absolute Lymphs (auto) (1.0-4.6) Absolute Monos (auto) (0.0-1.3) Lymphocytes % (24.0-44.0) % Monocytes % (0.0-12.0) % Eosinophils % (0.00-5.0) % Basophils % (0.0-0.4) % Absolute Granulocytes (1.4-6.9) Basophils # (0-0.4) D-Dimer (215-500) ng/mL Sodium (137-145) mmol/L Potassium (3.5-5.1) mmol/L Chloride (98-107) mmol/L Carbon Dioxide (22-30) mmol/L Anion Gap (5-15) MEQ/L BUN (7-17) mg/dL Creatinine (0.52-1.04) mg/dL Estimated GFR ML/MIN Glucose (74-106) mg/dL Calcium (8.4-10.2) mg/dL Total Bilirubin (0.2-1.3) mg/dL AST (14-36) U/L ALT (0-35) U/L Alkaline Phosphatase (38-126) U/L Troponin I < 0.012 < 0.012 < 0.012 (0.000-0.034) ng/mL NT-Pro-B Natriuret Pep (0-900) pg/mL Serum Total Protein (6.3-8.2) g/dL Albumin (3.5-5.0) g/dL SARS-CoV-2 (PCR) (NEGATIVE) 03/10/21 03/10/21 Range/Units 03:35 03:35 WBC 3.9 L (4.0-10.5) K/mm3 RBC 4.56 (4.1-5.4) M/mm3 Hgb 12.4 (12.0-16.0) gm/dl Hct 38.7 (35-47) % MCV 84.9 (78-100) fl MCH 27.2 (26-32) pg MCHC 32.0 (32-36) g/dl RDW 14.5 H (11.5-14.0) % Plt Count 149 L (150-450) K/mm3 MPV 9.3 (7.5-11.0) fl Gran % 71.7 H (36.0-66.0) % Eos # (Auto) 0.06 (0-0.5) Absolute Lymphs (auto) 0.69 L (1.0-4.6) Absolute Monos (auto) 0.33 (0.0-1.3) Lymphocytes % 17.9 L (24.0-44.0) % Monocytes % 8.5 (0.0-12.0) % Eosinophils % 1.6 (0.00-5.0) % Basophils % 0.3 (0.0-0.4) % Absolute Granulocytes 2.77 (1.4-6.9) Basophils # 0.01 (0-0.4) D-Dimer (215-500) ng/mL Sodium 140 (137-145) mmol/L Potassium 4.0 (3.5-5.1) mmol/L Chloride 105 (98-107) mmol/L Carbon Dioxide 29 (22-30) mmol/L Anion Gap 10.4 (5-15) MEQ/L BUN 14 (7-17) mg/dL Creatinine 0.72 (0.52-1.04) mg/dL Estimated GFR > 60.0 ML/MIN Glucose 116 H (74-106) mg/dL Calcium 9.1 (8.4-10.2) mg/dL Total Bilirubin 0.50 (0.2-1.3) mg/dL AST 22 (14-36) U/L ALT 16 (0-35) U/L Alkaline Phosphatase 65 (38-126) U/L Troponin I (0.000-0.034) ng/mL NT-Pro-B Natriuret Pep (0-900) pg/mL Serum Total Protein 6.0 L (6.3-8.2) g/dL Albumin 3.7 (3.5-5.0) g/dL SARS-CoV-2 (PCR) (NEGATIVE) - Radiology Impressions Radiology Exams & Impressions: Radiology Procedures Category Date Time Status CHEST 1 VIEW (PORTABLE) Stat Exams 03/09/21 15:28 Completed CHEST WITH CONTRAST [CT] Stat Exams 03/09/21 18:32 Taken Assessment/Plan (1) Chest pain, rule out acute myocardial infarction Current Visit: Yes Status: Acute Assessment & Plan: pain seems atypical, advised to use nitro prn for pain at home. will have her f/u with Dr Fonseca in the next week or so. in the meantime will cont asa, statin and beta cayden therapy Code(s): R07.9 - CHEST PAIN, UNSPECIFIED Hospital Summary - Vitals & Intake/Output Vital Signs: Vital Signs Temperature 97.7 F 03/10/21 04:00 Pulse Rate 45 L 03/10/21 04:00 Respiratory Rate 20 03/10/21 04:00 Blood Pressure 139/66 03/10/21 04:00 O2 Sat by Pulse Oximetry 96 03/10/21 04:00 Intake & Output: Intake & Output 03/07/21 03/08/21 03/09/21 03/10/21 11:59 11:59 11:59 11:59 Intake Total 680 Balance 680 Weight 86.183 kg - Lab Result Diagrams: 03/10/21 03:35 03/10/21 03:35 Lab Results-Last 24 Hrs: Lab Results-Last 24 Hours 03/09/21 03/09/21 03/09/21 Range/Units 15:10 15:10 15:10 WBC 5.0 (4.0-10.5) K/mm3 RBC 4.87 (4.1-5.4) M/mm3 Hgb 13.3 (12.0-16.0) gm/dl Hct 41.3 (35-47) % MCV 84.8 (78-100) fl MCH 27.3 (26-32) pg MCHC 32.2 (32-36) g/dl RDW 14.5 H (11.5-14.0) % Plt Count 200 (150-450) K/mm3 MPV 9.7 (7.5-11.0) fl Gran % 75.6 H (36.0-66.0) % Eos # (Auto) 0.05 (0-0.5) Absolute Lymphs (auto) 0.75 L (1.0-4.6) Absolute Monos (auto) 0.41 (0.0-1.3) Lymphocytes % 15.0 L (24.0-44.0) % Monocytes % 8.2 (0.0-12.0) % Eosinophils % 1.0 (0.00-5.0) % Basophils % 0.2 (0.0-0.4) % Absolute Granulocytes 3.78 (1.4-6.9) Basophils # 0.01 (0-0.4) D-Dimer (215-500) ng/mL Sodium 141 (137-145) mmol/L Potassium 4.2 (3.5-5.1) mmol/L Chloride 105 (98-107) mmol/L Carbon Dioxide 29 (22-30) mmol/L Anion Gap 11.4 (5-15) MEQ/L BUN 16 (7-17) mg/dL Creatinine 0.77 (0.52-1.04) mg/dL Estimated GFR > 60.0 ML/MIN Glucose 127 H (74-106) mg/dL Calcium 9.7 (8.4-10.2) mg/dL Total Bilirubin 0.50 (0.2-1.3) mg/dL AST 22 (14-36) U/L ALT 17 (0-35) U/L Alkaline Phosphatase 82 (38-126) U/L Troponin I < 0.012 (0.000-0.034) ng/mL NT-Pro-B Natriuret Pep 162 (0-900) pg/mL Serum Total Protein 6.6 (6.3-8.2) g/dL Albumin 4.1 (3.5-5.0) g/dL SARS-CoV-2 (PCR) (NEGATIVE) 03/09/21 03/09/21 03/09/21 Range/Units 17:49 17:57 18:00 WBC (4.0-10.5) K/mm3 RBC (4.1-5.4) M/mm3 Hgb (12.0-16.0) gm/dl Hct (35-47) % MCV (78-100) fl MCH (26-32) pg MCHC (32-36) g/dl RDW (11.5-14.0) % Plt Count (150-450) K/mm3 MPV (7.5-11.0) fl Gran % (36.0-66.0) % Eos # (Auto) (0-0.5) Absolute Lymphs (auto) (1.0-4.6) Absolute Monos (auto) (0.0-1.3) Lymphocytes % (24.0-44.0) % Monocytes % (0.0-12.0) % Eosinophils % (0.00-5.0) % Basophils % (0.0-0.4) % Absolute Granulocytes (1.4-6.9) Basophils # (0-0.4) D-Dimer 1632 H* (215-500) ng/mL Sodium (137-145) mmol/L Potassium (3.5-5.1) mmol/L Chloride (98-107) mmol/L Carbon Dioxide (22-30) mmol/L Anion Gap (5-15) MEQ/L BUN (7-17) mg/dL Creatinine (0.52-1.04) mg/dL Estimated GFR ML/MIN Glucose (74-106) mg/dL Calcium (8.4-10.2) mg/dL Total Bilirubin (0.2-1.3) mg/dL AST (14-36) U/L ALT (0-35) U/L Alkaline Phosphatase (38-126) U/L Troponin I < 0.012 (0.000-0.034) ng/mL NT-Pro-B Natriuret Pep (0-900) pg/mL Serum Total Protein (6.3-8.2) g/dL Albumin (3.5-5.0) g/dL SARS-CoV-2 (PCR) NEGATIVE (NEGATIVE) 03/09/21 03/10/21 03/10/21 Range/Units 21:06 00:21 03:35 WBC (4.0-10.5) K/mm3 RBC (4.1-5.4) M/mm3 Hgb (12.0-16.0) gm/dl Hct (35-47) % MCV (78-100) fl MCH (26-32) pg MCHC (32-36) g/dl RDW (11.5-14.0) % Plt Count (150-450) K/mm3 MPV (7.5-11.0) fl Gran % (36.0-66.0) % Eos # (Auto) (0-0.5) Absolute Lymphs (auto) (1.0-4.6) Absolute Monos (auto) (0.0-1.3) Lymphocytes % (24.0-44.0) % Monocytes % (0.0-12.0) % Eosinophils % (0.00-5.0) % Basophils % (0.0-0.4) % Absolute Granulocytes (1.4-6.9) Basophils # (0-0.4) D-Dimer (215-500) ng/mL Sodium (137-145) mmol/L Potassium (3.5-5.1) mmol/L Chloride (98-107) mmol/L Carbon Dioxide (22-30) mmol/L Anion Gap (5-15) MEQ/L BUN (7-17) mg/dL Creatinine (0.52-1.04) mg/dL Estimated GFR ML/MIN Glucose (74-106) mg/dL Calcium (8.4-10.2) mg/dL Total Bilirubin (0.2-1.3) mg/dL AST (14-36) U/L ALT (0-35) U/L Alkaline Phosphatase (38-126) U/L Troponin I < 0.012 < 0.012 < 0.012 (0.000-0.034) ng/mL NT-Pro-B Natriuret Pep (0-900) pg/mL Serum Total Protein (6.3-8.2) g/dL Albumin (3.5-5.0) g/dL SARS-CoV-2 (PCR) (NEGATIVE) 03/10/21 03/10/21 Range/Units 03:35 03:35 WBC 3.9 L (4.0-10.5) K/mm3 RBC 4.56 (4.1-5.4) M/mm3 Hgb 12.4 (12.0-16.0) gm/dl Hct 38.7 (35-47) % MCV 84.9 (78-100) fl MCH 27.2 (26-32) pg MCHC 32.0 (32-36) g/dl RDW 14.5 H (11.5-14.0) % Plt Count 149 L (150-450) K/mm3 MPV 9.3 (7.5-11.0) fl Gran % 71.7 H (36.0-66.0) % Eos # (Auto) 0.06 (0-0.5) Absolute Lymphs (auto) 0.69 L (1.0-4.6) Absolute Monos (auto) 0.33 (0.0-1.3) Lymphocytes % 17.9 L (24.0-44.0) % Monocytes % 8.5 (0.0-12.0) % Eosinophils % 1.6 (0.00-5.0) % Basophils % 0.3 (0.0-0.4) % Absolute Granulocytes 2.77 (1.4-6.9) Basophils # 0.01 (0-0.4) D-Dimer (215-500) ng/mL Sodium 140 (137-145) mmol/L Potassium 4.0 (3.5-5.1) mmol/L Chloride 105 (98-107) mmol/L Carbon Dioxide 29 (22-30) mmol/L Anion Gap 10.4 (5-15) MEQ/L BUN 14 (7-17) mg/dL Creatinine 0.72 (0.52-1.04) mg/dL Estimated GFR > 60.0 ML/MIN Glucose 116 H (74-106) mg/dL Calcium 9.1 (8.4-10.2) mg/dL Total Bilirubin 0.50 (0.2-1.3) mg/dL AST 22 (14-36) U/L ALT 16 (0-35) U/L Alkaline Phosphatase 65 (38-126) U/L Troponin I (0.000-0.034) ng/mL NT-Pro-B Natriuret Pep (0-900) pg/mL Serum Total Protein 6.0 L (6.3-8.2) g/dL Albumin 3.7 (3.5-5.0) g/dL SARS-CoV-2 (PCR) (NEGATIVE) - Radiology Exams Ordered Rad Exams-Entire Visit: Radiology Procedures Category Date Time Status CHEST 1 VIEW (PORTABLE) Stat Exams 03/09/21 15:28 Completed CHEST WITH CONTRAST [CT] Stat Exams 03/09/21 18:32 Taken - Discharge Disposition: Home, Self-Care Condition: Stable Prescriptions: Continue Aspirin [Aspirin EC] 81 mg PO DAILY Metoprolol Succinate 50 mg [Toprol Xl 50 MG] 50 mg PO DAILY Nitroglycerin 0.4 mg Tablet [Nitrostat 0.4 MG Tablet] 0.4 mg SL Q5MIN PRN MR X 3 PRN #25 bottle PRN Reason: Chest Pain Pravastatin Sodium 20 mg PO DAILY Follow up with: EVERARDO FONSECA [ACTIVE STAFF] - Call for Appointment ELBERT JEFFRIES MD [Primary Care Provider] -
--- NOTE | 2021-03-10 07:32 | PCM.DCORD ---
- Discharge Disposition: Home, Self-Care Condition: Stable Prescriptions: Continue Aspirin [Aspirin EC] 81 mg PO DAILY Metoprolol Succinate 50 mg [Toprol Xl 50 MG] 50 mg PO DAILY Nitroglycerin 0.4 mg Tablet [Nitrostat 0.4 MG Tablet] 0.4 mg SL Q5MIN PRN MR X 3 PRN #25 bottle PRN Reason: Chest Pain Pravastatin Sodium 20 mg PO DAILY Follow up with: ELBERT SALAZAR MD [Primary Care Provider] - EVERARDO FONSECA [ACTIVE STAFF] - Call for Appointment TIERRA SPRAGUE [COURTESY STAFF] -
[2021-03-10 07:35] VITALS: BP 143/66; PULSE 42; O2SAT 93
--- NOTE | 2021-03-10 08:43 | XRAY ---
Indication: Left chest and back pain. Elevated d-dimer. Multiple contiguous axial images obtained through the chest using 80 cc Isovue 370 contrast and PE protocol. Comparison: August 22, 2013. There is good opacification of the pulmonary arteries to include the lobar and segmental branches. No pulmonary embolus. Heart borderline enlarged. Aorta minimally arteriosclerotic without aneurysm/dissection. No pathologic mediastinal/hilar lymphadenopathy. Stable small hiatal hernia. Lungs again demonstrate mild bilateral dependent atelectasis. No suspicious pulmonary mass, infiltrate, or effusion. Bony thorax intact with mild degenerative changes throughout the spine. Limited upper abdomen demonstrates fatty liver, 8 mm gallstone, and incompletely visualized left renal parapelvic cysts. Impression: 1. Continued negative pulmonary embolus. No new/acute cardiopulmonary abnormalities. 2. Incidental small hiatal hernia, fatty liver, subsegmental gallstone, and incompletely visualized parapelvic renal cysts.
[2021-03-10] MEDS ORDERED: ENOXAPARIN SODIUM SQ SCH (10:00)
[2021-03-10] MEDS ORDERED: PROTONIX 40 MG IV IV SCH (10:00)
== END 2021-03-10 09:50 | disposition home or self-care (01) ==
LOC: ED 14:58 → MED SURG 20:41
PROVIDERS: ADMIT Family Medicine; ATTEND Family Medicine
DX: R07.9 Chest pain, unspecified (principal); I10 Essential (primary) hypertension; Z79.899 Other long term (current) drug therapy; Z20.828 Contact with and (suspected) exposure to other viral communicable diseases
CPT/HCPCS: 36000; 36415; 71045; 71260; 80053; 83880; 84484; 85025; 85379; 93005; 93041; 93268; 96374; 96375; 99285; G0378; U0003; J2270; J2405; A9270-GY

== ENCOUNTER 2021-03-28 10:05 | Day surgery (SDC) | payer MEDICARE ==
--- NOTE | 2021-03-25 12:51 | HP ---
DATE OF SURGERY: 03/28/2021 HISTORY OF PRESENT ILLNESS: The patient is a 65 year-old had a gallbladder attack last week or two ago, some pain radiating to the chest, shoulder area and back. No nausea or vomiting. No liver problems. No jaundice. She did have cholelithiasis on CT scan. I felt she had acute exacerbation of chronic cholecystitis, symptomatic cholelithiasis. I felt she would benefit from cholecystectomy. PAST MEDICAL HISTORY: Mitral valve prolapse. PAST SURGICAL HISTORY: Tubal in the past. Bladder work in the past. Anxiety. She does have colonoscopy set up with Dr. Jackson the following month. MEDICATIONS: Aspirin, metoprolol, nitroglycerin PRN, pravastatin, gabapentin, cimetidine. ALLERGIES: NKDA. FAMILY HISTORY: Heart disease, diabetes. Negative in regards to this problem. SOCIAL HISTORY: No alcohol abuse. REVIEW OF SYSTEMS: Fourteen systems reviewed. No chest pain or palpitations. Other systems negative or noncontributory as above and per preadmission questionnaire. PHYSICAL EXAMINATION: GENERAL: No acute distress. HEENT: Sclerae nonicteric. NECK: No JVD. CHEST: Equal excursion, nonlabored breathing. CVS: Regular rate and rhythm. ABDOMEN: Soft, minimal tenderness upper abdomen. No peritoneal signs. EXTREMITIES: No significant edema. NEURO: Alert, oriented, moving extremities symmetrically. PSYCH: Appropriate mood and affect. IMPRESSION: Acute exacerbation of chronic cholecystitis, symptomatic cholelithiasis. I feel the patient will benefit from cholecystectomy. Risks and benefits explained in detail including but not limited to bleeding or infection, risk of trocar injury or hernia, risk of bile leak, bile duct injury, retained stone or sludge possibly requiring further procedure either open or ERCP, general risk of anesthesia, deep venous thrombosis, pulmonary embolism, pneumonia, perioperative risk of aches, pains, bloating, constipation and/or loose stools possibly even chronic in nature, possibility of no improvement in her symptoms, may require other studies or procedures. She understands and agrees to the planned procedure, will proceed with laparoscopic cholecystectomy with possible open as an outpatient.
[~2021-03-28 10:05] MED LIST: Lactated Ringers 1,000 ML IV ONE; Lactated Ringers 1,000 ML IV SCH; MEFOXIN 2 GM PREMIX** 2 GM/50 ML ML IV SCH; Sensorcaine 0.25% 10 ML ONE
[2021-03-28] MEDS ORDERED: MEFOXIN 2 GM PREMIX** 2 GM/50 ML ML IV ONE (10:19)
[2021-03-28] MEDS ORDERED: Lactated Ringers 1,000 ML IV ONE (10:19)
[2021-03-28] MEDS ORDERED: Zemuron 100 MG/10 ML ONE (12:19)
[2021-03-28] MEDS ORDERED: BRIDION 200MG/2ML IV ONE (12:19)
[2021-03-28] MEDS ORDERED: ROBINUL ONE (12:19)
[2021-03-28] MEDS ORDERED: Quelicin Fliptop 200 MG/10 ML ONE (12:19)
[2021-03-28] MEDS ORDERED: Versed 2 MG/2 ML Injection ONE (12:20)
[2021-03-28] MEDS ORDERED: SUBLIMAZE 100 MCG/2 ML ONE ×2 (12:20→13:03)
[2021-03-28] MEDS ORDERED: Zofran 4 MG/2 ML VIAL ONE (12:46)
[2021-03-28] MEDS ORDERED: Decadron 4 MG INJ ONE (12:46)
[2021-03-28] MEDS ORDERED: TORAdol 30 mg Injection ONE (13:03)
[2021-03-28 14:27] VITALS: O2SAT 95
[2021-03-28 15:00] VITALS: BP 138/63; PULSE 68
--- NOTE | 2021-03-29 08:30 | OP ---
SURGERY DATE/TIME: 03/28/2021 1218 PREOPERATIVE DIAGNOSIS: Acute exacerbation of chronic cholecystitis, symptomatic cholelithiasis. POSTOPERATIVE DIAGNOSIS: Acute exacerbation of chronic cholecystitis, symptomatic cholelithiasis. PROCEDURE: Laparoscopic cholecystectomy. SURGEON: Dr. Adam Woo. ANESTHESIA: General. ESTIMATED BLOOD LOSS: Minimal. INDICATIONS: As noted above. Risks and benefits explained in detail but not limited to and consent obtained. DESCRIPTION OF PROCEDURE AND FINDINGS: The patient was taken to the operating room. General anesthesia induced. Abdomen prepped and draped in the usual sterile fashion. After official time out and no disagreement with planned procedure, a transverse incision made at the supraumbilical area. Fascia grasped and pulled upward. Veress needle inserted and tested with saline. Pneumoperitoneum accomplished insufflating opening pressure of 0-15. A 5 mm bladeless port and camera inserted without difficulty followed by two - 5 mm right upper quadrant ports and 11 mm epigastric port. There was no evidence of any intra-abdominal injury secondary to trocar insertion. The gallbladder is grasped, retracted over the edge of the liver. There is chronic inflammation. Dissecting posterior, lateral to anterior fashion cystic duct infundibular junction, main cystic artery directly on the gallbladder wall were isolated until the critical view obtained both anteriorly and posteriorly. Once this was accomplished, cystic duct and cystic artery clipped x3 and divided in the usual fashion. The gallbladder slowly and carefully dissected free from its dense attachment to the liver bed. It did require clipping of a couple additional oozing side branches off the oozing artery directly on the infundibulum area. These were carefully clipped directly on the gallbladder wall. The gallbladder slowly and carefully dissected free from its dense attachment to the liver bed clipping a couple other oozing side branches off the cystic artery and cystic vein carefully on the gallbladder as necessary. One of the graspers tore a small pin hole in the gallbladder spilling a small amount of bile. There was no gross evidence of any stone spillage. The gallbladder was carefully dissected free staying directly on the gallbladder wall. Just prior to releasing from final attachments to the anterior edge of the liver, the liver bed re-inspected. Clips noted in place cystic duct and cystic artery stumps. One small, little pulsatile oozing vessel carefully clipped tangential to the liver bed. Good hemostasis noted. Gallbladder released from final attachments anterior to the liver, placed in the provided back, pulled up and out the epigastric wound and passed off. Copious amount of irrigation accomplished lateral to the liver and subhepatic space irrigating until clear. Liver bed re-inspected. Clips noted in place cystic duct and cystic artery stumps. No signs of any active bleeding or bile leakage. It was felt there was no benefit from drain placement. This fascia defect 06/06 site closed with puncture closure device with #1 Vicryl. Pneumoperitoneum decompressed. The wound irrigated out. Skin incision closed with 4-0 Vicryl. Steri-Strips and sterile dressing applied. 0.25% Marcaine local injected along the skin incision fascial defect. The patient tolerated the procedure well. There were no immediate complications. Findings discussed with the family out in the waiting area.
== END 2021-03-28 14:45 | disposition home or self-care (01) ==
LOC: SDC 10:05
PROVIDERS: ATTEND Surgery
DX: K80.00 Calculus of gallbladder with acute cholecystitis without obstruction (principal)
CPT/HCPCS: 88304; J0330; J0694; J1100; J1885; J2250; J2405; J3010

== ENCOUNTER 2021-05-09 08:36 | Day surgery (SDC) | payer MEDICARE ==
[2021-05-09] MEDS ORDERED: Lactated Ringers 1,000 ML IV ONE ×3 (08:58→13:13)
[2021-05-09] MEDS ORDERED: Lactated Ringers 1,000 ML IV SCH (09:00)
[2021-05-09] MEDS ORDERED: DIPRIVAN 200 MG/20 ML IV ONE ×4 (11:59→13:57)
[2021-05-09 13:54] VITALS: O2SAT 99
[2021-05-09 14:22] VITALS: BP 150/67; PULSE 47
--- NOTE | 2021-05-10 13:29 | OP ---
PROCEDURE DATE/TIME: 05/09/2021 1203 PREOPERATIVE DIAGNOSIS: Bright red blood per rectum. POSTOPERATIVE DIAGNOSIS: Anterior anal fissure, diverticulosis (mild pancolonic), and colon polyps. PROCEDURE: 1) Colonoscopy to cecum with cold snare polypectomy sigmoid polyp x2. 2) Cold snare polypectomy rectosigmoid polyp x1. 3) Hot forceps polypectomy ascending colon x1, sigmoid colon x1. 4) Cold forceps polypectomy of the sigmoid colon and rectal polyp. PROCEDURE PERFORMED BY: Maye Jackson M.D. COMPLICATIONS: None. ESTIMATED BLOOD LOSS: Minimal. ANESTHESIA: MAC. SPECIMENS: Ascending colon, rectosigmoid, sigmoid and rectal polyps. HISTORY: This is a 65-year-old female who has had right red blood per rectum. She presents for colonoscopy. Risks, benefits, alternatives discussed with her. H&P and consent reviewed, completed and confirmed. DESCRIPTION OF PROCEDURE: She was then brought back to the endoscopy suite and laid in left lateral decubitus position. A complete time out performed. First, a rectal inspection was done and then a rectal exam. The patient has an obvious anterior fissure that does bleed easily. It does appear to be trying heal although it does still bleed easily and it still remains open and does have a ways to go to fully heal. Adjacent to this she has a very tiny, irritated area that looks like a very superficial tear and then posteriorly she has a 1 mm very superficial tear. I suspect these are from wiping and from the bowel prep but anterior anal fissure does look real and this does not look like it has been caused by the bowel prep, this looks like the source of her bright red blood per rectum. She has no significantly enlarged bleeding hemorrhoids. However, she does have some mild hemorrhoidal disease especially internally but this is mild. The scope is then inserted. It is gently advanced to the cecum. We did use some gentle abdominal pressure to help straighten the scope without issue. In the cecum her ileocecal valve and appendiceal orifice were verified. There was some liquid stool that I had to irrigate but overall after irrigation her prep was satisfactory. I then carefully withdrew the scope taking a very close circumferential look. She had multiple polyps. I removed an ascending colon polyp that was small with the hot forceps in entirety and this was retrieved. She then had about four sigmoid colon polyps, two of these were slightly larger around 3 to 5 mm that I removed with cold snare x2, hemostatic and removed in entirety. She also had miniscule diminutive polyp in the sigmoid colon taken with cold forceps in entirety. She had another rectosigmoid polyp at approximately 15 cm which was about 4 to 5 mm taken with cold snare and the patient also had a rectal polyp which was diminutive, taken with cold forceps in entirety. All sites were hemostatic. All polyps retrieved. The estimated blood loss was minimal. The patient tolerated the procedure very well. No immediate complications. She is going to be following up with me as an outpatient to discuss the results. I have also given her a fiber supplement, water and then she will get a prescription for some diltiazem.
== END 2021-05-09 14:25 | disposition home or self-care (01) ==
LOC: SDC 08:36
PROVIDERS: ATTEND Surgery
DX: K60.2 Anal fissure, unspecified (principal); K57.30 Diverticulosis of large intestine without perforation or abscess without bleeding; D12.2 Benign neoplasm of ascending colon; D12.8 Benign neoplasm of rectum; K64.8 Other hemorrhoids; Z79.899 Other long term (current) drug therapy
CPT/HCPCS: 88305; J2704

== ENCOUNTER 2022-08-04 12:54 | Emergency (ER) | payer MEDICARE ==
[2022-08-04 13:22] LABS: Absolute Neutrophil Ct (ANC) 3.46 x10^3/uL (1.4-6.9); Basophil (Absolute #) 0.02 x10^3/uL (0-0.4); Eosinophil % 1.1 % (0.00-5.0); Eosinophil (Absolute #) 0.05 x10^3/uL (0-0.5); Hematocrit 40.5 % (35-47); Hemoglobin 12.8 g/dL (12.0-16.0); Lymphocyte (Absolute #) 0.69 x10^3/uL (1.0-4.6); Lymphocytes % 15.1 % (24.0-44.0); Mean Cell Volume 86.2 fL (78-100); Mean Corpuscular Hemoglobin 27.2 pg (26-32); Mean Corpuscular Hgb Concent. 31.6 g/dL (32-36); Mean Platelet Volume 9.4 fL (7.5-11.0); Monocyte (Absolute #) 0.35 x10^3/uL (0.0-1.3); Monocytes % 7.6 % (0.0-12.0); Neutrophil % 75.6 % (36.0-66.0); Platelet Count 188 x10^3/uL (150-450); Red Cell Distribution Width 13.7 % (11.5-14.0); White Blood Count 4.6 x10^3/uL (4.0-10.5)
--- NOTE | 2022-08-04 13:35 | ERPHSYRPT ---
- History of Present Illness Source: patient Exam Limitations: other (Poor historian) Patient Subjective Stated Complaint: C/O Shortness of breath that started last night but has become worse today Triage Nursing Assessment: Patient ambulated back to ED without difficulties. She is alert and oriented. Patient is able to speak in complete senteces without difficulties. RLE wrapped in an tanisha wrap; patient indicates that she had varicose vein removal surgery on 08/01/22 to that leg. Lungs clear. No cough noted during assessment. Physician History: 66 yo wf w dyspnea since 7AM. Pt states that it occurred as she was getting out of bed but denies reason for waking up. She has nasal congestion but denies cough/coryza/chest pain/fever/N/V/D/melena/hematochezia. Pt had general anesthesia w days ago for RLE vein stripping. She has a h/o HTN/hyperlipidemia and states that Dr. Handley told her that she might have had a NC many years ago but denies stents/CABG. Previous or current tobacco use denied. Timing/Duration: other (7AM) Activities at Onset: other (Getting up from bed) Severity of Dyspnea-Max: moderate Severity of Dyspnea-Current: mild Possible Cause: no prior episodes Modifying Factors: Improves With: other (Nothing makes worse) Associated Symptoms: denies symptoms Allergies/Adverse Reactions: No Known Drug Allergies Allergy (Verified 08/04/22 12:56) Home Medications: Metoprolol Succinate 50 mg [Toprol Xl 50 MG] 50 mg PO DAILY 09/19/16 [History] Pravastatin Sodium 20 mg PO DAILY 03/09/21 [History] Hx Tetanus, Diphtheria Vaccination/Date Given: Yes Hx Influenza Vaccination/Date Given: Yes Hx Pneumococcal Vaccination/Date Given: Yes Immunizations Up to Date: Yes Travel Risk - International Travel Have you traveled outside of the country in past 3 weeks: No - Coronavirus Screening Are you exhibiting any of the following symptoms?: Yes Symptoms: Cough: New Onset, Shortness of Breath Close contact with a COVID-19 positive Pt in past 14-21 Days: No - Vaccine Status Have you recieved a Covid-19 vaccination: Yes Rate Clerk Passenger: Moderna - Vaccination Dates Date of 2cond Vaccination (if applicable): december - Review of Systems Constitutional: No Symptoms Eyes: No Symptoms Ears, Nose, & Throat: No Symptoms Respiratory: No Symptoms, Dyspnea Cardiac: No Symptoms Abdominal/Gastrointestinal: No Symptoms Genitourinary Symptoms: No Symptoms Skin: No Symptoms Neurological: No Symptoms Psychological: No Symptoms Endocrine: No Symptoms Hematologic/Lymphatic: No Symptoms Immunological/Allergic: No Symptoms - Past Medical History Pertinent Past Medical History: Yes Neurological History: No Pertinent History ENT History: No Pertinent History Cardiac History: High Cholesterol, Hypertension Respiratory History: Pneumonia Endocrine Medical History: No Pertinent History Musculoskeletal History: No Pertinent History GI Medical History: Gallbladder Disease History: No Pertinent History Psycho-Social History: No Pertinent History Female Reproductive Disorders: No Pertinent History Other Medical History: mitral valve prolapse - Past Surgical History Past Surgical History: Yes Neuro Surgical History: No Pertinent History Cardiac: No Pertinent History Respiratory: No Pertinent History Gastrointestinal: Cholecystectomy Genitourinary: No Pertinent History Musculoskeletal: No Pertinent History Female Surgical History: Tubal Ligation Other Surgical History: bladder tie up, varicose vein removal RLE in July 2022 - Social History Smoking Status: Never smoker Exposure to second hand smoke: No Drug Use: none Patient Lives Alone: No - Nursing Vital Signs Nursing Vital Signs: Initial Vital Signs Temperature 97.5 F 08/04/22 12:55 Pulse Rate 52 L 08/04/22 12:55 Respiratory Rate 19 08/04/22 12:55 Blood Pressure 179/71 08/04/22 12:55 O2 Sat by Pulse Oximetry 100 08/04/22 12:55 Pain Scale Pain Intensity 0 Kelvin/Hypertensive - Physical Exam General Appearance: no apparent distress Eye Exam: PERRL/EOMI, eyes nml inspection Ears, Nose, Throat Exam: hearing grossly normal, normal ENT inspection, normal pharynx Neck Exam: normal inspection, non-tender, supple, full range of motion, No Brudzinski, No Kernig's, No meningismus, No carotid bruit Respiratory Exam: normal breath sounds, lungs clear, airway intact, No respiratory distress Cardiovascular/Chest Exam: normal heart sounds, regular rate/rhythm, normal peripheral pulses, No murmur, No edema Abdominal/Gastrointestinal Exam: soft, normal bowel sounds, No tenderness Peripheral Pulses Exam: carotid (R): 2+, carotid (L): 2+ Neurologic Exam: alert, oriented x 3, cooperative, 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, normal mood/affect, nml cerebellar function, sensation nml, No motor deficits, No sensory deficit Skin Exam: normal color, warm, dry, No rash Lymphatic Exam: No adenopathy SpO2 Interpretation: normal SpO2: 100 O2 Delivery: Room Air - Course Nursing assessment & vital signs reviewed: Yes EKG Interpreted by Me: RATE (Sinus kelvin/Rate 56/Normal QT-QTc/Flat Twaves/Non- specific ST changes) - Radiology Exams Chest X-ray Interpretation: Discussed w/ radiologist (CXR neg per Rad) - CT Exams Chest CT Interpretation: Discussed w/radiologist (CTA of chest neg per Rad) Ordered Tests: Active Orders 24 hr Category Date Time Status EKG-ER Only STAT Care 08/04/22 13:06 Completed CHEST 1 VIEW (PORTABLE) Stat Exams 08/04/22 13:06 Completed CHEST WITH CONTRAST [CT] Stat Exams 08/04/22 14:17 Completed CBC W DIFF Stat Lab 08/04/22 13:20 Completed CMP Stat Lab 08/04/22 13:20 Completed CULTURE,URINE Stat Lab 08/04/22 14:52 Received D-DIMER QUANTITATIVE Stat Lab 08/04/22 13:52 Completed MAGNESIUM Stat Lab 08/04/22 13:20 Completed NT PRO BNP Stat Lab 08/04/22 13:20 Completed PROTIME WITH INR Stat Lab 08/04/22 13:20 Completed PTT Stat Lab 08/04/22 13:20 Completed TROPONIN Q4H Lab 08/04/22 13:20 Completed TROPONIN Q4H Lab 08/04/22 16:10 Completed UA W/RFX CULTURE Stat Lab 08/04/22 14:52 Completed Lab/Rad Data: Laboratory Result Diagrams 08/04/22 13:20 08/04/22 13:20 Laboratory Results 08/04/22 08/04/22 08/04/22 Range/Units 16:10 14:52 13:52 WBC (4.0-10.5) x10^3/uL RBC (4.1-5.4) x10^6/uL Hgb (12.0-16.0) g/dL Hct (35-47) % MCV (78-100) fL MCH (26-32) pg MCHC (32-36) g/dL RDW (11.5-14.0) % Plt Count (150-450) x10^3/uL MPV (7.5-11.0) fL Gran % (36.0-66.0) % Immature Gran % (Auto) (0.00-0.4) % Nucleat RBC Rel Count (0.00-0.1) % Eos # (Auto) (0-0.5) x10^3/uL Immature Gran # (Auto) (0.00-0.03) x10^3u/L Absolute Lymphs (auto) (1.0-4.6) x10^3/uL Absolute Monos (auto) (0.0-1.3) x10^3/uL Absolute Nucleated RBC (0.00-0.01) x10^3u/L Lymphocytes % (24.0-44.0) % Monocytes % (0.0-12.0) % Eosinophils % (0.00-5.0) % Basophils % (0.0-0.4) % Absolute Granulocytes (1.4-6.9) x10^3/uL Basophils # (0-0.4) x10^3/uL PT (9.4-12.5) SECONDS INR (0.8-3.0) APTT (25.1-36.5) SECONDS D-Dimer 0.67 H* (0.0-0.50) mg/L Sodium (137-145) mmol/L Potassium (3.5-5.1) mmol/L Chloride (98-107) mmol/L Carbon Dioxide (22-30) mmol/L Anion Gap (5-15) MEQ/L BUN (7-17) mg/dL Creatinine (0.52-1.04) mg/dL Estimated GFR ML/MIN Glucose (74-106) mg/dL Calcium (8.4-10.2) mg/dL Magnesium (1.6-2.3) mg/dL Total Bilirubin (0.2-1.3) mg/dL AST (14-36) U/L ALT (0-35) U/L Alkaline Phosphatase (38-126) U/L Troponin I < 0.012 (0.000-0.034) ng/mL NT-Pro-B Natriuret Pep (0-900) pg/mL Serum Total Protein (6.3-8.2) g/dL Albumin (3.5-5.0) g/dL Urinalys Dipstick Clnc MAIN LAB Urine Color YELLOW (YELLOW) Urine Appearance CLEAR (CLEAR) Urine pH 6.0 (5-6) Ur Specific [place] 1.020 (1.005-1.025) POC Urine Protein Conf NEGATIVE (Negative) Urine Ketones NEGATIVE (NEGATIVE) Urine Nitrite NEGATIVE (NEGATIVE) Urine Bilirubin NEGATIVE (NEGATIVE) Urine Urobilinogen 0.2 (0-1) mg/dL Urine Leukocytes MODERATE A (NEGATIVE) Urine WBC (Auto) 16-25 A (0-5) /HPF Urine RBC (Auto) 6-10 A (0-2) /HPF U Epithel Cells (Auto) FEW (FEW) /HPF Urine Bacteria (Auto) RARE (NEGATIVE) /HPF Urine RBC TRACE-INTACT A (0-5) Ko/ul Urine Mucus (Auto) SLIGHT A (NEGATIVE) /HPF Ur Culture Indicated? YES Urine Glucose NEGATIVE (NEGATIVE) mg/dL Influenza Type A Ag (NEGATIVE) Influenza Type B Ag (NEGATIVE) RSV (PCR) (Negative) SARS-CoV-2 (PCR) (NEGATIVE) 08/04/22 08/04/22 08/04/22 Range/Units 13:20 13:20 13:20 WBC (4.0-10.5) x10^3/uL RBC (4.1-5.4) x10^6/uL Hgb (12.0-16.0) g/dL Hct (35-47) % MCV (78-100) fL MCH (26-32) pg MCHC (32-36) g/dL RDW (11.5-14.0) % Plt Count (150-450) x10^3/uL MPV (7.5-11.0) fL Gran % (36.0-66.0) % Immature Gran % (Auto) (0.00-0.4) % Nucleat RBC Rel Count (0.00-0.1) % Eos # (Auto) (0-0.5) x10^3/uL Immature Gran # (Auto) (0.00-0.03) x10^3u/L Absolute Lymphs (auto) (1.0-4.6) x10^3/uL Absolute Monos (auto) (0.0-1.3) x10^3/uL Absolute Nucleated RBC (0.00-0.01) x10^3u/L Lymphocytes % (24.0-44.0) % Monocytes % (0.0-12.0) % Eosinophils % (0.00-5.0) % Basophils % (0.0-0.4) % Absolute Granulocytes (1.4-6.9) x10^3/uL Basophils # (0-0.4) x10^3/uL PT 10.9 (9.4-12.5) SECONDS INR 1.03 (0.8-3.0) APTT < 20.0 L (25.1-36.5) SECONDS D-Dimer (0.0-0.50) mg/L Sodium (137-145) mmol/L Potassium (3.5-5.1) mmol/L Chloride (98-107) mmol/L Carbon Dioxide (22-30) mmol/L Anion Gap (5-15) MEQ/L BUN (7-17) mg/dL Creatinine (0.52-1.04) mg/dL Estimated GFR ML/MIN Glucose (74-106) mg/dL Calcium (8.4-10.2) mg/dL Magnesium (1.6-2.3) mg/dL Total Bilirubin (0.2-1.3) mg/dL AST (14-36) U/L ALT (0-35) U/L Alkaline Phosphatase (38-126) U/L Troponin I < 0.012 (0.000-0.034) ng/mL NT-Pro-B Natriuret Pep (0-900) pg/mL Serum Total Protein (6.3-8.2) g/dL Albumin (3.5-5.0) g/dL Urinalys Dipstick Clnc Urine Color (YELLOW) Urine Appearance (CLEAR) Urine pH (5-6) Ur Specific [place] (1.005-1.025) POC Urine Protein Conf (Negative) Urine Ketones (NEGATIVE) Urine Nitrite (NEGATIVE) Urine Bilirubin (NEGATIVE) Urine Urobilinogen (0-1) mg/dL Urine Leukocytes (NEGATIVE) Urine WBC (Auto) (0-5) /HPF Urine RBC (Auto) (0-2) /HPF U Epithel Cells (Auto) (FEW) /HPF Urine Bacteria (Auto) (NEGATIVE) /HPF Urine RBC (0-5) Ko/ul Urine Mucus (Auto) (NEGATIVE) /HPF Ur Culture Indicated? Urine Glucose (NEGATIVE) mg/dL Influenza Type A Ag NEGATIVE (NEGATIVE) Influenza Type B Ag NEGATIVE (NEGATIVE) RSV (PCR) NEGATIVE (Negative) SARS-CoV-2 (PCR) NEGATIVE (NEGATIVE) 08/04/22 08/04/22 Range/Units 13:20 13:20 WBC 4.6 (4.0-10.5) x10^3/uL RBC 4.70 (4.1-5.4) x10^6/uL Hgb 12.8 (12.0-16.0) g/dL Hct 40.5 (35-47) % MCV 86.2 (78-100) fL MCH 27.2 (26-32) pg MCHC 31.6 L (32-36) g/dL RDW 13.7 (11.5-14.0) % Plt Count 188 (150-450) x10^3/uL MPV 9.4 (7.5-11.0) fL Gran % 75.6 H (36.0-66.0) % Immature Gran % (Auto) 0.2 (0.00-0.4) % Nucleat RBC Rel Count 0.0 (0.00-0.1) % Eos # (Auto) 0.05 (0-0.5) x10^3/uL Immature Gran # (Auto) 0.01 (0.00-0.03) x10^3u/L Absolute Lymphs (auto) 0.69 L (1.0-4.6) x10^3/uL Absolute Monos (auto) 0.35 (0.0-1.3) x10^3/uL Absolute Nucleated RBC 0.00 (0.00-0.01) x10^3u/L Lymphocytes % 15.1 L (24.0-44.0) % Monocytes % 7.6 (0.0-12.0) % Eosinophils % 1.1 (0.00-5.0) % Basophils % 0.4 (0.0-0.4) % Absolute Granulocytes 3.46 (1.4-6.9) x10^3/uL Basophils # 0.02 (0-0.4) x10^3/uL PT (9.4-12.5) SECONDS INR (0.8-3.0) APTT (25.1-36.5) SECONDS D-Dimer (0.0-0.50) mg/L Sodium 137 (137-145) mmol/L Potassium 3.7 (3.5-5.1) mmol/L Chloride 105 (98-107) mmol/L Carbon Dioxide 24 (22-30) mmol/L Anion Gap 11.8 (5-15) MEQ/L BUN 8 (7-17) mg/dL Creatinine 0.61 (0.52-1.04) mg/dL Estimated GFR > 60.0 ML/MIN Glucose 133 H (74-106) mg/dL Calcium 9.2 (8.4-10.2) mg/dL Magnesium 1.9 (1.6-2.3) mg/dL Total Bilirubin 0.80 (0.2-1.3) mg/dL AST 21 (14-36) U/L ALT 15 (0-35) U/L Alkaline Phosphatase 79 (38-126) U/L Troponin I (0.000-0.034) ng/mL NT-Pro-B Natriuret Pep 111 (0-900) pg/mL Serum Total Protein 7.1 (6.3-8.2) g/dL Albumin 4.2 (3.5-5.0) g/dL Urinalys Dipstick Clnc Urine Color (YELLOW) Urine Appearance (CLEAR) Urine pH (5-6) Ur Specific [place] (1.005-1.025) POC Urine Protein Conf (Negative) Urine Ketones (NEGATIVE) Urine Nitrite (NEGATIVE) Urine Bilirubin (NEGATIVE) Urine Urobilinogen (0-1) mg/dL Urine Leukocytes (NEGATIVE) Urine WBC (Auto) (0-5) /HPF Urine RBC (Auto) (0-2) /HPF U Epithel Cells (Auto) (FEW) /HPF Urine Bacteria (Auto) (NEGATIVE) /HPF Urine RBC (0-5) Ko/ul Urine Mucus (Auto) (NEGATIVE) /HPF Ur Culture Indicated? Urine Glucose (NEGATIVE) mg/dL Influenza Type A Ag (NEGATIVE) Influenza Type B Ag (NEGATIVE) RSV (PCR) (Negative) SARS-CoV-2 (PCR) (NEGATIVE) - Progress Progress Note: 08/04/22 18:56 Pt wo chest pain and w good Sats during entire stay. Counseled pt/family regarding: lab results, diagnosis, need for follow-up, rad results - Departure Departure Disposition: Home Clinical Impression: Dyspnea, UTI (urinary tract infection) Condition: Stable Critical Care Time: No Referrals: GEMINI GONZALEZ DO [Primary Care Provider] - Follow up/PCP as directed Instructions: Urinary Tract Infection, Adult (DC), Shortness of Breath (Dyspnea) (DC) Additional Instructions: Follow up with your family MD Return to ER for chest pain or increasing shortness of breath Prescriptions: Nitrofurantoin Monohyd/M-Cryst [Macrobid 100 mg Capsule] 100 mg PO BID #10 cap
--- NOTE | 2022-08-04 13:37 | XRAY ---
Indication: Short of breath. Comparison: March 09, 2021 Portable chest remains inflated and clear. Heart not enlarged. Bony thorax intact again with mild osteopenia and degenerative changes. No new/acute findings.
[2022-08-04 13:38] LABS: INR 1.03 (0.8-3.0); PROTIME 10.9 SECONDS (9.4-12.5); PTT < 20.0 SECONDS (25.1-36.5)
[2022-08-04 13:45] LABS: ALBUMIN 4.2 g/dL (3.5-5.0); ALKALINE PHOSPHATASE 79 U/L (38-126); ANION GAP 11.8 MEQ/L (5-15); BLOOD UREA NITROGEN 8 mg/dL (7-17); CHLORIDE 105 mmol/L (98-107); Calcium 9.2 mg/dL (8.4-10.2); Carbon Dioxide 24 mmol/L (22-30); Creatinine 1 0.61 mg/dL (0.52-1.04); EST GLOMERULAR FILTRATION RATE > 60.0 ML/MIN; Glucose 133 mg/dL (74-106); MAGNESIUM 1.9 mg/dL (1.6-2.3); NT PRO BNP 111 pg/mL (0-900); Potassium 3.7 mmol/L (3.5-5.1); SGOT/AST 21 U/L (14-36); SGPT/ALT 15 U/L (0-35); SODIUM 137 mmol/L (137-145); Total Protein 7.1 g/dL (6.3-8.2)
[2022-08-04 13:59] LABS: INFLUENZA A NEGATIVE (NEGATIVE); INFLUENZA B NEGATIVE (NEGATIVE); RESPIRATORY SYNCTIAL VIRUS NEGATIVE (Negative); SARS-CoV-2 Xpert Express NEGATIVE (NEGATIVE)
[2022-08-04 15:09] LABS: Appearance CLEAR (CLEAR); Bilirubin NEGATIVE (NEGATIVE); Glucose NEGATIVE (NEGATIVE); Ketones NEGATIVE (NEGATIVE)
[2022-08-04 15:10] LABS: Dipstick done @ ? MAIN LAB; Nitrite NEGATIVE (NEGATIVE); Protein,Urine Dip NEGATIVE (Negative); RBC TRACE-INTACT Ery/ul (0-5); Urobilinogen 0.2 mg/dL (0-1)
[2022-08-04 15:14] LABS: Bacteria RARE /HPF (NEGATIVE); Epithelial Cells FEW /HPF (FEW); Mucus SLIGHT /HPF (NEGATIVE)
[2022-08-04 15:16] LABS: Urine Cultured Indicated? YES
--- NOTE | 2022-08-04 15:30 | XRAY ---
Indication: Short of breath. Elevated d-dimer. Status post venous varicosity surgery. Multiple contiguous axial images obtained through the chest using 100 cc Isovue 370 contrast and PE protocol. Comparison: March 09, 2021 Good opacification of the pulmonary arteries to include the lobar and segmental branches. No pulmonary embolus. Heart is not enlarged. Aorta is minimally at-risk [place] without aneurysm/dissection. No pathologic mediastinal/hilar lymphadenopathy. Again small hiatal hernia. Lungs demonstrates minimal bibasilar subsegmental atelectasis/scarring. No suspicious pulmonary mass, nodule, infiltrate, effusion, or pneumothorax. Bony thorax intact again with mild osteopenia and mild degenerative changes throughout the spine. Limited upper abdomen demonstrates fatty liver and small descending duodenal diverticulum. Interval cholecystectomy. New incompletely visualized bilateral parapelvic renal cysts not previously included in [id number]. Impression: 1. Continued negative pulmonary embolus. No new/acute cardiopulmonary abnormalities. 2. Chronic findings including small hiatal hernia, fatty liver, chronic bony findings, duodenal diverticulum, and bilateral parapelvic renal cysts.
[2022-08-04 15:50] VITALS: O2SAT 100
[2022-08-04 17:48] VITALS: BP 170/68; PULSE 56
== END 2022-08-04 17:49 | disposition home or self-care (01) ==
LOC: ED 12:54
DX: N39.0 Urinary tract infection, site not specified (principal); R06.00 Dyspnea, unspecified; R09.81 Nasal congestion; I10 Essential (primary) hypertension; E78.5 Hyperlipidemia, unspecified; Z79.899 Other long term (current) drug therapy; Z20.828 Contact with and (suspected) exposure to other viral communicable diseases
CPT/HCPCS: 0241U; 36000; 36415; 71045; 71260; 80053; 81015; 83735; 83880; 84484; 85025; 85379; 85610; 85730; 87086; 93005; 99284